=== PATIENT | male | born 1955 | race Caucasian/White ===

== ENCOUNTER → 2017-07-12 | Outpatient (CLI) | payer OTHER, BC ==
[~2017-07-12] VITALS: Ht 172.7 cm; Wt 136.0 kg
[~2017-07-12] MED LIST: CYMBALTA30 MG PO; GLIMEPIRIDE4 MG PO; GLUMETZA1000 M1 PO; HUMALOG100 UNIT/2 SC; INVOKANA300 MG PO; JANUVIA100 MG PO; LIPITOR40 MG PO; METFORMIN HCL1000 M3 PO; NORCO 5/3251 TABLET PO; NOVOLOG PE100 UNITS/ SC; OMEPRAZOLE20 MG PO; PERCOCET 5/31 TABLET PO; PRILOSEC20 MG PO; TAMSULOSIN HCL0.4 MG PO; TOUJEO SOL300 UNIT/1 SC; TRESIBA FL200 UNIT/1 SC; VESICARE10 MG PO; VIAGRA100 MG PO; VICTOZA0.6 MG/0.1 SC; VITAMIN D35000 UNIT PO
[2017-07-12 10:29] LABS: HEMATOCRIT 45.7 % (38.0-50.0); HEMOGLOBIN 15.1 G/DL (12.5-16.6); MCH 27.8 PG (29.0-34.0); PLATELET COUNT 237 K/uL (156-360); RBC DIS.WIDTH-CV 13.9 % (11.8-14.6); RBC DIS.WIDTH-SD 42.5 % (39-53); RED BLOOD COUNT 5.44 M/uL (4.00-5.50); WHITE BLOOD COUNT 9.7 K/uL (4.1-10.2)
[2017-07-12 10:53] LABS: CHLORIDE 105 MEQ/L (99-109); CREATININE 0.7 MG/DL (0.6-1.3); GFR ESTIMATE (CALCULATED) > 59 mL/min/ (58.99-99999); GLUCOSE 125 mg/dL (70-99); SODIUM 141 MEQ/L (136-147); UREA NITROGEN (BUN) 11 mg/dL (9-23)
== END | disposition home or self-care (01) ==
LOC: AMB 09:41
PROC: 0DBM8ZX Excision of Descending Colon, Via Natural or Artificial Opening Endoscopic, Diagnostic (ICD-10-PCS; principal; 2017-07-12)
PROC: 0DBK8ZX Excision of Ascending Colon, Via Natural or Artificial Opening Endoscopic, Diagnostic (ICD-10-PCS; principal; 2017-07-12)
DX: D12.2 Benign neoplasm of ascending colon (principal); D12.4 Benign neoplasm of descending colon; E11.9 Type 2 diabetes mellitus without complications; G47.33 Obstructive sleep apnea (adult) (pediatric); E66.01 Morbid (severe) obesity due to excess calories; Z68.42 Body mass index [BMI] 45.0-49.9, adult; Z88.0 Allergy status to penicillin; Z79.4 Long term (current) use of insulin
CPT/HCPCS: 80048; 82948; 85027; 88305; 93005; J0330; J2250